=== PATIENT | male | born 1980 | race Hispanic/Latino ===

== ENCOUNTER 2018-09-07 12:17 | Outpatient (CLI) | payer BC | END 2018-09-07 12:18 | disposition home or self-care (01) | LOC: C.RADIC 12:17 ==

== ENCOUNTER 2018-12-07 11:05 | Outpatient (CLI) | payer BC | END 2018-12-07 11:06 | disposition home or self-care (01) | LOC: C.RADIC 11:05 ==

== ENCOUNTER 2018-12-17 12:26 | Outpatient (CLI) | payer BC | END 2018-12-17 12:27 | disposition home or self-care (01) | LOC: C.CTH 12:26 | DX: J81.0 Acute pulmonary edema (principal) ==